=== PATIENT | male | born 1985 | race Caucasian/White ===

== ENCOUNTER → 2022-05-29 14:47 | Outpatient (BNVA) | payer BC, SELFPAY | PROVIDERS: PCP Nurse Practitioner Family; Visit Provider Nurse Practitioner Family | DX: K58.9 Irritable bowel syndrome, unspecified (principal); R03.0 Elevated blood-pressure reading, without diagnosis of hypertension; G47.33 Obstructive sleep apnea (adult) (pediatric); Z68.37 Body mass index [BMI] 37.0-37.9, adult; Z13.220 Encounter for screening for lipoid disorders; R53.1 Weakness; R53.83 Other fatigue; Z13.1 Encounter for screening for diabetes mellitus; W57.XXXA Bitten or stung by nonvenomous insect and other nonvenomous arthropods, initial encounter; J30.2 Other seasonal allergic rhinitis; Z76.89 Persons encountering health services in other specified circumstances | CPT/HCPCS: 80053; 80061; 82607; 83036; 84402; 84403; 84443 ==

== ENCOUNTER → 2022-08-02 10:46 | Outpatient (BNVA) | payer OTHER, SELFPAY | PROVIDERS: PCP Nurse Practitioner Family; Visit Provider Nurse Practitioner Family | DX: M25.561 Pain in right knee (principal); R79.89 Other specified abnormal findings of blood chemistry; W57.XXXA Bitten or stung by nonvenomous insect and other nonvenomous arthropods, initial encounter | CPT/HCPCS: 84402; 84403; 86003; 86008 ==

== ENCOUNTER → 2023-05-16 16:25 | Outpatient (BNVA) | payer OTHER, SELFPAY | PROVIDERS: PCP Nurse Practitioner Family; Visit Provider Nurse Practitioner Family | DX: R79.89 Other specified abnormal findings of blood chemistry (principal); Z91.018 Allergy to other foods; G47.33 Obstructive sleep apnea (adult) (pediatric); Z13.220 Encounter for screening for lipoid disorders; Z68.37 Body mass index [BMI] 37.0-37.9, adult; K76.0 Fatty (change of) liver, not elsewhere classified; R53.83 Other fatigue | CPT/HCPCS: 80053; 80061; 82306; 82607; 82746; 84402; 84403; 84443; 85025; 86003; 86008; 86038 ==